=== PATIENT | female | born 1950 | race Caucasian/White ===

== ENCOUNTER 2017-03-21 13:49 | Emergency (ER) | payer MEDICARE, OTHER ==
[2017-03-21] MEDS ORDERED: Naproxen 500 MG TAB ONE (15:04)
[2017-03-21] MEDS ORDERED: Benzonatate 100 MG CAP ONE (15:04)
[2017-03-21] MEDS ORDERED: AMOXicillin 250 MG CAP ONE (15:04)
== END 2017-03-21 15:10 | disposition home or self-care (01) ==
LOC: MADERS 13:49
DX: J20.9 Acute bronchitis, unspecified (principal); I10 Essential (primary) hypertension; K21.9 Gastro-esophageal reflux disease without esophagitis; F32.9 Major depressive disorder, single episode, unspecified; Z87.891 Personal history of nicotine dependence
CPT/HCPCS: 99282